=== PATIENT | female | born 1925 | race Caucasian/White ===

== ENCOUNTER 2016-11-24 08:04 | Observation (INO) | payer MEDICARE, MEDICAID ==
[~2016-11-24] VITALS: Ht 180.3 cm; Wt 60.0 kg
[2016-11-24] VITALS (12 sets, daily range): BP systolic 121–198; BP diastolic 62–107; PULSE 76–110; RESP 16–22; O2SAT 92–96
[~2016-11-24 08:04] MED LIST: ASPI-973 PO; LISI-571 PO; METO25TA6 PO; OMEP20CA11 PO
--- NOTE | 2016-11-24 08:11 | ED.REPORT ---
HPI-General Illness Date of Service Nov 24, 2016 ED Provider: Dr. Bliss The pt is an 89 y/o female with a hx of HTN, scoliosis, and osteoporosis who presents to the ED via EMS complaining of generalized weakness, onset this morning. The pt could not get up from the toilet today. She also reports chronic back pain which has not worsened, and left thigh pain. The pt had a ground level fall a couple of days ago. She had experienced lower extremity weakness and slid to the floor. She did not hit her head or injure her left knee at that time. Unlike today, she was able to walk with the help of the paramedics at that time. She denies fever, chills, coughing, sputum, chest pain , nausea, vomiting, diarrhea,and change in appetite and fluid intake. She had dysuria, which she states has improved since beginning an antibiotic for UTI a few days ago. The pt was recently diagnosed with UTI and per pharmacy records macrobid was prescribed. She reports improvement in her UTI sx. The pt has not been taking her Aspirin and HTN medications, because they have not been recently filled. Nursing Notes Stated Complaint: POST GROUND LEVEL FALL/LEFT HIP PAIN Chief Complaint: General Complaint Nursing Notes Reviewed: Yes Allergies: Coded Allergies: Penicillins (Verified Allergy, Severe, 05/16/15) fluocinonide (Verified Allergy, Severe, Rash, 05/16/15) amlodipine (Verified Allergy, Mild, 10/14/15) lactose (Verified Allergy, Mild, Headache, 05/16/15) Sulfa (Sulfonamide Antibiotics) (Verified Allergy, Unknown, 05/16/15) ciprofloxacin (Verified Allergy, Unknown, 05/16/15) Tendonitis per pt and family ciprofloxacin HCl (Verified Allergy, Unknown, 05/16/15) Tendonitis per pt and family cortisone (Verified Allergy, Unknown, 05/16/15) influenza virus vaccine, specific (Verified Allergy, Unknown, RASH, ITCHING, 05/16/15) pneumococcal vaccine (Verified Allergy, Unknown, SWELLING, RASH, 05/16/15) Scheduled Aspirin (Aspirin) 81 Mg Tablet 81 MG PO DAILY Lisinopril (Lisinopril) 5 Mg Tablet 5 MG PO DAILY Metoprolol Tartrate (Metoprolol Tartrate) 25 Mg Tablet 25 MG PO BID Omeprazole (Omeprazole) 20 Mg Capsule.dr 20 MG PO DAILY General Time Seen by MD: 08:09 Chief Complaint Weakness Hx Obtained From: Patient Arrived By: Ambulance Sudden in Onset?: No Onset Occurred: 1 - 4 hours ago Symptom Duration: Since onset Location: : Leg left Quality: Painful Radiation: : Does not radiate Severity: Current: Moderate Severity: Maximum: Moderate Recent Healthcare: No recent doctor visit Past Medical History Past Medical History sciatica scoliosis osteoporosis Unspecified irregular heart rhythm Reports: GERD, Hypertension Past Surgical History None reported Smoking History Former Smoker Social History Other Social History: Good social support Ambulatory Status Walker Review of Systems Reports: sore abdomen Denies: change in appetite and fluid intake Full Review of Systems Constitutional: Reports: Weakness - generalized, Denies: Chills, Fever Respiratory: Denies: Non-productive cough, Prod cough, clear GI: Denies: Diarrhea, Nausea, Vomiting Female: Denies: Dysuria Musculoskeletal: Reports: Back pain (aspirin), Joint pain (left knee) Complete sys rev & neg: except as marked. Physical Exam Vital Signs Vital Signs Date Time Temp Pulse Resp B/P Pulse Ox O2 Delivery O2 Flow Rate FiO2 11/24/16 09:34 100 21 174/107 95 Room Air 11/24/16 09:15 82 21 163/62 95 Room Air 11/24/16 08:45 92 22 180/78 93 Room Air 11/24/16 08:30 90 21 198/74 95 Room Air 11/24/16 08:15 91 21 182/99 95 Room Air 11/24/16 08:07 36.5 107 21 179/89 93 Room Air Initial VS: Reviewed Head / Eyes: Atraumatic, Normocephalic Neck: Supple, Non-tender, Full range of motion Respiratory: Breath sounds normal, Clear to auscultation, No respiratory distress Cardiovascular: Regular rate & rhythm, Heart sounds normal, Intact distal pulses Extremities: Vascular intact, Neuro intact, No swelling, No tenderness Skin: Warm, Dry, No cyanosis Neurologic: Alert, Oriented, Nonfocal General/Constitutional: Awake, Alert, Cooperative Cardiovascular: Regular rhythm, Heart sounds NL, No gallop, No murmurs, No rubs Heart Rate / Rhythm: Positive: Tachycardia Lower Ext Edema: Negative: Pitting Abdomen: Atraumatic, Soft, No guarding, No rebound mild suprapubic tenderness Back: Atraumatic, Full range of motion Lower Extremity / Pelvis / MS: Atraumatic, Full range of motion, No swelling, Neurologic intact, Vascular intact Tenderness to dstal thigh without bony crepitus. Interpretation & Diagnostics Lab Results Interpretation Result Diagram: 11/24/16 0832 11/24/16 0832 Test 11/24/16 08:32 11/24/16 09:09 11/24/16 09:25 White Blood Count 8.9th/mm3 (3.8-10.1) Red Blood Count 5.21mil/mm3 (3.90-5.20) Hemoglobin 15.7g/dL (12.0-15.6) Hematocrit 44.9% (35.0-46.0) Mean Corpuscular Volume 86.2fL (81-100) Mean Corpuscular Hemoglobin 30.1pg (27.0-35.0) Mean Corpuscular Hemoglobin Concent 35.0% (32.0-37.0) Red Cell Distribution Width 12.6% (12.3-15.4) Platelet Count 175bil/L (150-400) Neutrophils (%) (Auto) 82.5% (40-74) Lymphocytes (%) (Auto) 9.1% (14-46) Monocytes (%) (Auto) 7.7% (4-12) Eosinophils (%) (Auto) 0.4% (0-5) Basophils (%) (Auto) 0.2% (0-3) Sodium Level 127mEq/L (134-144) Potassium Level 4.1mEq/L (3.5-5.2) Chloride Level 88mEq/L (97-108) Carbon Dioxide Level 19mmol/L (18-29) Blood Urea Nitrogen 9mg/dL (8-27) Creatinine 0.53mg/dL (0.57-1.00) Estimat Glomerular Filtration Rate 156mL/min (>59) Glucose Level 136mg/dL (60-99) Osmolality 267 (275-300) Calcium Level 9.5mg/dL (8.5-10.1) Magnesium Level 1.9mg/dL (1.6-2.6) Total Bilirubin 1.1mg/dL (0.0-1.2) Aspartate Amino Transf (AST/SGOT) 20U/L (0-50) Alanine Aminotransferase (ALT/SGPT) 10U/L (0-32) Alkaline Phosphatase 77U/L (25-165) Troponin T 0.010ug/L (0.0-0.011) Total Protein 7.6g/dL (6.4-8.4) Albumin 4.4g/dL (3.4-5.0) Lactic Acid Level 1.7mmol/L (0.4-2.0) Urine Color Yellow (YELLOW) Urine Appearance Clear (CLEAR,HAZY) Urine pH 7.0 (5.0-8.0) Urine Specific Pingree 1.005 (1.003-1.035) Urine Protein Negativemg/dL (NEG,TRACE) Urine Glucose (UA) Negativemg/dL (NEGATIVE) Urine Ketones 40mg/dL (NEGATIVE) Urine Occult Blood Trace (NEGATIVE) Urine Nitrite Negative (NEGATIVE) Urine Bilirubin Negative (NEGATIVE) Urine Urobilinogen Normalmg/dL (NORMAL) Urine Leukocyte Esterase Negative (NEGATIVE) Urine RBC 0-2/hpf (0-2) Urine WBC 0-5/hpf (0-5) Urine Epithelial Cells Few/hpf (NONE-MOD) Urine Crystals Oxalic acid crystals (NONE Urine Bacteria Few/hpf (NONE-FEW) Urine Hyaline Casts None/lpf (NONE) Urine Granular Casts None seen (NONE SEEN) Urine Waxy Casts None seen (NONE SEEN) Urine Red Blood Cell Casts None seen (NONE SEEN) Urine White Blood Cell Casts None seen (NONE SEEN) Urine Mucus None seen (None Seen) Urine Trichomonas None seen (NONE SEEN) Urine Yeast None (NONE SEEN) Urinalysis Comment None Urine Culture Reflexed Not indicated Urine Osmolality 171mOs/kH2O (250-1200) Urine Random Sodium 30mEq/L ECG Interpretation ECG Interpretation: Normal sinus rhythm. Rate 87. No acute ST changes Time: 09:36 Interpreted by: ED physician X-Ray Chest Interpretation Chest Xray Interpretation: IMPRESSION: No radiographic evidence of acute cardiopulmonary pathology. Dictated by: Og See M.D. on 11/24/2016 at 9:10 Approved by: Og See M.D. on 11/24/2016 at 9:11 View: Portable, 1 view Interpretation / Wet Read by: Interpret - Radiologist X-Ray Interpretation Xray Interpretation: IMPRESSION: No acute fractures or dislocations. Dictated by: Og See M.D. on 11/24/2016 at 9:11 Approved by: Og See M.D. on 11/24/2016 at 9:12 X-Ray Ordered: Femur left Interpretation / Wet Read by: Interpret - Radiologist Re-Eval/Medical Decision Med Decision/Clinical Course Patient presents with weakness and recent diagnosis of UTI, she is initially tachycardic. There are some initial concerns for early sepsis given the tachycardia, systemic symptoms of weakness, and recent diagnosis of urinary tract infection. For this reason, a small bolus of normal saline, 500 mL's, was given, however after reviewing labs showing hyponatremia and no signs of UTI, no further IV fluids are given and nephrology is consulted. Nephrology recommends holding IV fluid and ordering serum osmolality, urine osmolality, and urine sodium. Will plan to admit. Time of Eval: 09:12 Re-Evaluation/Progress Note: Rechecked pt. Discussed lab results, imaging results,diagnosis and plan to admit. Pt understands and agrees with the plan for admission. All questions addressed. Consultation #1: Referral / Consult Name: Jose Curiel DO Consulted With: Nephrology Call Returned at: 09:17 Apartment Coordinator: Will see patient, Agrees with eval, Agrees with plan Note: Does not recommend IV fluids. Recommends ordering serum osmolality, urine osmolality and sodium. Consultation #2: Referral / Consult Name: Tory Ward DO Call Returned at: 11:17 Apartment Coordinator: Accepts admit Counseled Regarding: Diagnosis, Lab results, Need for admission Discharge & Departure Primary Impression: Hyponatremia Disposition: ADMITTED TO HOSPITAL Referrals: Divina Lindsey MD (PCP) Scribe Attestation Portions of this note were transcribed by Michele Eisenberg. I,, personally performed the history,physical exam and medical decision-making;I reviewed and confirmed the accuracy of the information in the transcribed note. Signed by Lynn Nichols. 11/24/16 copies to: Divina Lindsey MD, Timothy S DO Nov 24, 2016 08:11 Michele Eisenberg Nov 24, 2016 08:24
[2016-11-24] MEDS ORDERED: 0.9% Sodium Chloride 500 ML IV ONE (08:30)
[2016-11-24 08:46] LABS: TROPONIN T 0.01 ug/L (0.0-0.011)
[2016-11-24 08:55] LABS: Mean Corpuscular Hemoglobin 30.1 pg (27.0-35.0); Mean Corpuscular Volume 86.2 fL (81-100); NEUTROPHILS % (AUTO) 82.5 % (40-74); Platelet Count 175 bil/L (150-400)
[2016-11-24 08:56] LABS: BASOPHILS % (AUTO) 0.2 % (0-3); EOSINOPHILS % (AUTO) 0.4 % (0-5); MONOCYTES % (AUTO) 7.7 % (4-12)
[2016-11-24 08:57] LABS: Magnesium 1.9 mg/dL (1.6-2.6)
--- NOTE | 2016-11-24 09:12 | DRSVH ---
PROCEDURE: X-RAY CHEST ONE VIEW, PORTABLE ([id number]) INDICATIONS: generalized weakness TECHNIQUE: One view of the chest was acquired. COMPARISON: [facility], CR, CHEST 1VW (PORTABLE), 09/23/2012, 5:02. [facility], CR, CHEST 1VW (PORTABLE), 04/28/2012, 11:23. FINDINGS: Surgical changes and devices: None. Lungs and pleura: No pleural effusions or pneumothorax. Lungs are clear. Mediastinum: Mediastinal contours appear normal. Heart size is normal. Bones and chest wall: No suspicious bony lesions. Overlying soft tissues appear unremarkable. IMPRESSION: No radiographic evidence of acute cardiopulmonary pathology. Dictated by: Og See M.D. on 11/24/2016 at 9:10 Approved by: Og See M.D. on 11/24/2016 at 9:11
--- NOTE | 2016-11-24 09:13 | DRSVH ---
PROCEDURE: X-RAY LEFT FEMUR, TWO VIEWS ([id number]) INDICATIONS: pain, post fall TECHNIQUE: 4 views of the femur were acquired. COMPARISON: None. FINDINGS: Bones: No fractures or dislocations. No suspicious bony lesions. Osteopenia. Left hip degenerative change. Soft tissues: No suspicious soft tissue calcifications or masses. IMPRESSION: No acute fractures or dislocations. Dictated by: Og See M.D. on 11/24/2016 at 9:11 Approved by: Og See M.D. on 11/24/2016 at 9:12
[2016-11-24 09:58] LABS: OSMOLALITY, URINE 171 mOs/kH2O (250-1200)
[2016-11-24 10:02] LABS: APPEARANCE,URINE CLEAR (CLEAR,HAZY); COLOR,URINE YELLOW (YELLOW); OCCULT BLOOD,URINE TRACE (NEGATIVE); UROBILINOGEN,URINE NORMAL (NORMAL)
[2016-11-24] MEDS ORDERED: Heparin 5,000 Unit/mL Inj SUBQ SCH (11:15)
[2016-11-24] MEDS ORDERED: Ondansetron 2 mg/mL 2 mL Inj IVPUSH PRN (11:15)
[2016-11-24] MEDS ORDERED: Alum-Mag Hydrox-Simeth 30 mL Suspension PO PRN (11:15)
[2016-11-24] MEDS ORDERED: Polyethylene Glycol (PEG) 17 Gm Powder PO PRN (11:15)
[2016-11-24] MEDS: Sodium Chloride LOK Flush 10 mL Syringe IVFLUSH SCH ×2 (13:02→14:41)
[2016-11-24] MEDS: 0.9% Sodium Chloride 1,000 ML IV SCH (14:41)
--- NOTE | 2016-11-24 14:48 | NUR ---
ADMIT Patient received from the ED via a gurney. Transferred to the bed via a sliding board. Patient is alert and oriented X 4. Answering questions appropriately. Patient stated that she feels sore but she is not in pain. Tolerating liquids PO and her diet well. Denies nausea. No emesis noted. Denies SOB. Mepilex foam placed over her sacral area for protection. Lagrange alarm in place for safety (HX: Falls). Oriented to room and call light. (Pls. refer to admit grid for assessments)
--- NOTE | 2016-11-24 15:07 | PCM.HPMED ---
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 Patient states that she has an issue with not being able to get up from her toilet this morning. She states that normally she walks with the help of her walker. She has suffered a ground- level fall 2 days ago and called the EMT. Came and evaluated her and put her back to bed, she said she was also seen at the walk-in clinic on Friday, was diagnosed with a UTI past taken the medications yesterday a.m. and last night a total of 2 doses so far . She is endorsing some lower abdominal pain. She does get frequent UTIs. She has no problems with appetite, she is trying to eat well and stay hydrated. She lives on her own and a small studio apartment. Her adopted daughter and granddaughter are present in the room and are able to give history. The patient is endorsing no unilateral weakness, no dizziness , no visual symptoms (she has received an injection in one of her eye for hemorrhage and she is going to get another one soon). She has no diarrhea or constipation. She says she does not understand why she is feeling so weak. Patient is on metoprolol, aspirin and omeprazole at home. She was unable to get her prescriptions refilled for the last 1 week and has not taken her medications. In the ER chest x-ray was nonacute, EKG was normal sinus heart rate appears to be a maximum 100(granddaughter states that sometimes her heart rate on the monitor went up to 120s). Urine analysis was negative for infection. Nephrology was consulted due to concern for hyponatremia at 127, who initially recommended fluid restriction but later upon reviewing her platelet records that he revised his recommendation and requested fluid hydration as he thought patient may have been dehydrated. A left femur x-ray done in the ER is negative for fractures. Currently patient states that other than her weakness she has no other symptoms with the exception of some lower abdominal pain and left leg pain. Review of records shows that patient was hospitalized in September of last year for atrial fibrillation and at that point metoprolol was initiated. Atrial fibrillation resolved on its own, it was deemed unnecessary for her to be on anticoagulation and that decision is deferred to the client architect at that time. Patient has had an echocardiogram on 11/14/15 that showed ejection fraction of 60-65% right ventricular pressures of 44 mmhg and no significant valvular disease. Review of Systems: Complete review of systems performed, pertinent positives and negatives per history of present illness, all other systems reviewed and are negative. Allergies Coded Allergies: Penicillins (Verified Allergy, Severe, 05/16/15) fluocinonide (Verified Allergy, Severe, Rash, 05/16/15) amlodipine (Verified Allergy, Mild, 10/14/15) lactose (Verified Allergy, Mild, Headache, 05/16/15) Sulfa (Sulfonamide Antibiotics) (Verified Allergy, Unknown, 05/16/15) ciprofloxacin (Verified Allergy, Unknown, 05/16/15) Tendonitis per pt and family ciprofloxacin HCl (Verified Allergy, Unknown, 05/16/15) Tendonitis per pt and family cortisone (Verified Allergy, Unknown, 05/16/15) influenza virus vaccine, specific (Verified Allergy, Unknown, RASH, ITCHING, 05/16/15) pneumococcal vaccine (Verified Allergy, Unknown, SWELLING, RASH, 05/16/15) Home Medications Aspirin, metoprolol, omeprazole PMH Hypertension, scoliosis, osteoporosis, sciatica, atrial fibrillation, GERD Surgical History Tonsillectomy, appendectomy Family History Mother was very healthy, of old age Dad [facility] Social History Occupation: used to work at the [employer] Hx Alcohol Use: Yes Hx Substance Use: No Hx Tobacco Use: No Smoking Status: Former Smoker Living Arrangement: Alone Exam Vital Signs Vital Sign - Last Date Time Temp Pulse Resp B/P Pulse Ox O2 Delivery O2 Flow Rate FiO2 11/24/16 09:34 100 21 174/107 95 Room Air 11/24/16 08:07 36.5 Exam Gen.: No acute distress appears tired elderly woman interacting appropriately heart regular rate and rhythm no S3-S4 murmurs Lungs: Clear to auscultation no crackles or wheezes Musculoskeletal: Scoliotic, kyphosis, symmetric strength in upper and lower extremities, reduced at 4/5, tenderness to palpation of pelvis and left hip and right pubic ramus Neurological: No focal deficit and grossly normal extraocular movements are intact, [id number] is unremarkable, equal and symmetric reflexes Heart: Regular rate and rhythm no S3-S4 sounds Psychiatric: No anxiety or agitation HEENT: Normocephalic, atraumatic. External ears without defect. Pupils equal, round, and reactive to light and accommodation. Anicteric sclerae, moist conjunctivae, and no lid lag. Oropharynx free of erythema and cobble stoning with moist mucosa. Neck: Supple with full range of motion. No jugular venous distension. No bruits. No lymphadenopathy or thyromegaly. Abdomen: Bowel tones present. Soft, mildly tender diffusely, nondistended. No hepatosplenomegaly or masses appreciated. Extremities: No clubbing, cyanosis, edema, or lymphadenopathy appreciated. Skin: Normal temperature, turgor, and texture; no rash, ulcers, or subcutaneous nodules appreciated. Psychiatric: Normal mood and affect. Alert and oriented to person, place, and time. Lab and Diagnostics Result Diagram: 11/24/1683111/24/16831 Assessment & Plan This is a pleasant 89-year-old white female with past medical history of hypertension, atrial fibrillation that has resolved presenting today due to general weakness, functional debility. Assessment #1 general weakness, functional debility present on admission acute -- Physical therapy -- Telemonitoring to see if she is having paroxysmal A. fib -- Restart cardiac medications -- Follow blood cultures Assessment #2 hyponatremia chronic stable -- Patient appears to be close to her baseline -- IV fluid hydration at 70 mL per hour -- Recheck labs in the a.m. Assessment #3 hypertension chronic presumed stable recently worsened -- Continue home medication Assessment #4 pelvic tenderness, present on admission acute -- X-rays were ordered -- X-rays of the left femur were reviewed, negative for fracture Assessment #4 atrial fibrillation, presumed resolved -- Continue her medication Assessment #5 urinary tract infection presumably acute -- Yesterday's UA medical necessity requested from the lab -- Apparently she was given Macrobid for treatment -- UA From the ER is clean - I have tried to obtain records from walk-in clinic at [facility], they were closed for the day. [facility] says they Do not have the result in spite of initially telling me that they did have the result -- I will start her on ceftriaxone, until those results become available Assessment #6 GERD chronic stable -- Continue home medication CODE STATUS: DNR/DNI, alternate decision maker Emilia [phone] Patient is admitted under Inpatient status with expected length of stay greater than 2 midnights due to severity of presenting symptoms, risk of adverse event, and complexity of treatment plan. Pain Evaluation: Adequate Pain Control Resuscitation Status: DNR/DNI:Do Not Resuscitate/Intubate (.Campbell Nieto [phone] ) Time spent 45 Minute Attending Statement 45 minutes Tory Ward DO Nov 24, 2016 11:04
--- NOTE | 2016-11-24 15:50 | DRSVH ---
PROCEDURE: X-RAY PELVIS WITH BILATERAL HIPS, 3 VIEWS INDICATIONS: recent fall, pain TECHNIQUE: AP pelvis with lateral view(s) of the bilateral hip(s). COMPARISON: None. FINDINGS: Bones: No fractures or dislocations. Pelvic ring appears intact. No suspicious bony lesions. Osteo penia. Degenerative changes in both hips and the lower lumbar spine. Soft tissues: The visualized bowel gas pattern is normal. A 1.4 cm calcification projects over the r ight lower quadrant likely within the cecum. IMPRESSION: No acute fractures or dislocations. If there is clinical concern for a radiographically o ccult right hip fracture then a noncontrast CT or MRI would be recommended for further evaluation. Dictated by: Og See M.D. on 11/24/2016 at 15:46 Approved by: Og See M.D. on 11/24/2016 at 15:49
[2016-11-24] MEDS ORDERED: cefTRIAXone Inj 1,000 MG in Dextrose 5% Minibag Plus 50 ML IV SCH (19:50)
[2016-11-24] MEDS: Heparin 5,000 Unit/mL Inj SUBQ SCH (22:15)
[2016-11-25] VITALS (8 sets, daily range): BP systolic 128–150; BP diastolic 66–83; PULSE 73–89; RESP 16–22; O2SAT 93–98
[2016-11-25] MEDS: Sodium Chloride LOK Flush 10 mL Syringe IVFLUSH SCH ×4 (00:30→22:54)
--- NOTE | 2016-11-25 04:31 | NUR ---
Pain Patient A&OX3. Patient states that she doesn't have any pain. Tele sinus 83. Thelma alarm. Patient bed rest, using bed pain to void. Patient denies nausea and vomiting. Sleeping quietly in room.
[2016-11-25] MEDS: Heparin 5,000 Unit/mL Inj SUBQ SCH ×3 (05:03→21:11)
[2016-11-25] MEDS: 0.9% Sodium Chloride 1,000 ML IV SCH ×2 (05:14→21:02)
[2016-11-25 05:35] LABS: BASOPHILS % (AUTO) 0.5 % (0-3); EOSINOPHILS % (AUTO) 3.5 % (0-5); MONOCYTES % (AUTO) 12.9 % (4-12); Mean Corpuscular Hemoglobin 30.1 pg (27.0-35.0); Mean Corpuscular Volume 88.3 fL (81-100); NEUTROPHILS % (AUTO) 61.4 % (40-74); Platelet Count 139 bil/L (150-400)
--- NOTE | 2016-11-25 11:47 | NUR ---
Case Management: NAEEM given and explained to pt. Stephanie WHITEHEADRN
--- NOTE | 2016-11-25 13:54 | NUR ---
Social Work: Initial Assessment/Readiness for Discharge/Multi-Disciplinary Rounds D: EMR reviewed. Please see Initial Assessment linked to this note for more information. Pt is an 89 y/o female admitted [facility] - with a readmit risk score of 0 - for hyponatremia per H&P. Pt's insurance is Medicare and [facility]. PCP is Divina Lindsey MD. SW met with pt and ELIZABETH Nieto at bedside to conduct initial assessment. Pt was alert and oriented x3. SW explained role and wrote phone number on white board. SW provided [facility] Discharge Planning Checklist and encouraged pt to contact SW for any discharge planning questions. Pt discussed in multidisciplinary rounds and is not medically stable for discharge home today. Anticipate 1-2 more days. ordered SNF placement - pt is [facility] and will not qualify for SNF placement covered by [facility]. Pt can't afford private pay. placed order for HH RN PT. SW met with pt and provided choice list. Pt did not have a choice. SW made referral to [facility] per rotating Vendor Calendar. Access provided. No other SW needs identified, no other MD orders received. Pt lives at home alone in [place]. Pt uses a walker and wheelchair at baseline. Pt has hx at [facility]. Pt does not have hx of HH. Pt has [facility] caregiver 110 hrs/month. CM is Koki Rodriguez. SW faxed clinicals to . Caregiver comes M/W/F/SA. Pt and DPOA stated they provided DPOA/advanced directive ppw and a copy is in pt's hard chart. A: Pt who has 110 hrs/month of [facility] at baseline. Pt for whom HH RN PT is medically necessary. P: Pt anticipated to return home with family to transport via POV. Pt to return home with [facility] caregiver and [facility]. SW will continue to follow. ERENDIRA Doherty Addendum: 11/25/16 at 1406 by MARCELL RASCON Amended: Links added. Addendum: 11/25/16 at 1459 by MARCELL VALERA SUNSHINE richmond completed F2F to [facility] confirmed receipt of F2F. F2F in folder. ERENDIRA Doherty
--- NOTE | 2016-11-25 15:11 | NUR ---
Evaluation completed. Please go to "Notes" then click on "Assessments and Notes" (bottom left corner of screen). Then select appropriate discipline tab on top of screen.
--- NOTE | 2016-11-25 20:50 | PCM.PNMED ---
Subjective Date of Service Nov 25, 2016 Subjective Patient is seen and examined. She is feeling slightly better, she is very receptive to the idea of home care help. Patient was noted to have some paroxysmal tachycardia on telemonitoring Exam Vital Signs Vital Sign - Last Date Time Temp Pulse Resp B/P Pulse Ox O2 Delivery O2 Flow Rate FiO2 11/25/16 10:25 80 11/25/16 08:31 36.4 18 141/81 93 Room Air Intake and Output 11/24/16 11/24/16 11/25/16 Cumulative From/Thru 15:00 23:00 07:00 11/24/16 08:07 - 11/25/16 06:37 Intake Total 500 ml 1240 ml 1600 ml 3340 ml Output Total 180 ml 350 ml 530 ml Balance 500 ml 1060 ml 1250 ml 2810 ml Intake Oral 1240 ml 520 ml 1760 ml IV Total 500 ml 1080 ml 1580 ml Output Urine Total 180 ml 350 ml 530 ml # Voids 2 2 4 # Bowel Movements 0 0 0 Exam Gen.: No acute distress appears tired elderly woman interacting appropriately heart regular rate and rhythm no S3-S4 murmurs Lungs: Clear to auscultation no crackles or wheezes Musculoskeletal: Scoliotic, kyphosis, neg leg flexion and hip rotation on left side Neurological: No focal deficit and grossly normal extraocular movements are intact, [id number] is unremarkable, equal and symmetric reflexes Heart: Regular rate and rhythm no S3-S4 sounds Psychiatric: No anxiety or agitation Neck: Supple with full range of motion. No jugular venous distension. No bruits. No lymphadenopathy or thyromegaly. Abdomen: Bowel tones present. Soft, mildly tender diffusely, nondistended. No hepatosplenomegaly or masses appreciated. Extremities: No clubbing, cyanosis, edema, or lymphadenopathy appreciated. Skin: Patient does have a stage I to stage II ulcer in the mid thoracolumbar spine Psychiatric: Normal mood and affect. Alert and oriented to person, place, and time. IVs and Medications IV Fluids Reduced fluids to 40 mL/h Medications Reviewed: Medications were reviewed in detail Lab and Diagnostics Result Diagram: 11/25/16 0502 11/25/16 0502 Assessment & Plan This is a pleasant 89-year-old white female with past medical history of hypertension, atrial fibrillation that has resolved presenting today due to general weakness, functional debility. Assessment #1 general weakness, functional debility present on admission acute -- Physical therapy -- Telemonitoring to see if she is having paroxysmal A. fib -- Restart cardiac medications -- Follow blood cultures: Negative to date Assessment #2 hyponatremia chronic improving -- Patient appears to be close to her baseline at admission -- IV fluid hydration at 70 mL per hour -- Recheck labs in the a.m. #3 Sinus tachycardia acute -- Increased her metoprolol dose to 50 mg twice a day Assessment #4 hypertension chronic presumed stable recently worsened -- Continue home medication Assessment # 5 pelvic tenderness, present on admission acute -- X-rays were ordered negative -- X-rays of the left femur were reviewed, negative for fracture Assessment # 6 atrial fibrillation, presumed resolved -- Continue her medication metoprolol, dose is increased secondary to sinus tachycardia Assessment # 7 urinary tract infection presumably acute -- Apparently she was given Macrobid for treatment -- UA From the ER is clean -[facility] did not run a UA, reviewed the records. They have ordered a straight culture that showed less than 100,000 colonies of Escherichia coli. I have discussed this with patient and her POA, who say that in spite of her not having any symptoms today, she did have symptoms prior to going to [facility]. Discontinue ceftriaxone, complete 3 more days of Macrobid as planned earlier Assessment #8 stage I stage II ulcers present on admission -- Wound care is consulted Assessment # 9 GERD chronic stable -- Continue home medication CODE STATUS: DNR/DNI, alternate decision maker Emilia [phone] Patient did not qualify for an inpatient admission upon review, she is still in observation admission. Patient is agreeable to home care help, power of trial attorney T barby wants to know if patient can resume more [employer] hours VTE Mechanical Devices: Intermittant Pneumatic CD Resuscitation Status: DNR/DNI:Do Not Resuscitate/Intubate (.Campbell Nieto [phone] ) Time spent 30 min Tory Ward DO Nov 25, 2016 12:51
[2016-11-25] MEDS: Nitrofurantoin Monohyd-Macrocryst 100 mg Capsule PO SCH (21:12)
[2016-11-26 01:32] VITALS: BP 131/71; PULSE 84; RESP 18; O2SAT 95
[2016-11-26] MEDS: Heparin 5,000 Unit/mL Inj SUBQ SCH (05:27)
--- NOTE | 2016-11-26 05:44 | NUR ---
Activity Pt has been OOB frequently this shift to BR. NS @ 40. Ambulates with 1PA using FWW and is steady on feet. Takes a little help to get up on her feet, OOB and off toilet, pt uses call light appropriately. Incontinent of urine, wears a pullup. She has had no c/o pain/N/V, CP, SOB this shift and anticipates being able to discharge to adult living some time today.
[2016-11-26 06:50] VITALS: BP 108/68; PULSE 81; RESP 16; O2SAT 96
[2016-11-26] MEDS: Sodium Chloride LOK Flush 10 mL Syringe IVFLUSH SCH ×2 (08:30→11:16)
[2016-11-26 09:07] VITALS: BP 153/82; PULSE 85; RESP 18; O2SAT 95
[2016-11-26] MEDS ORDERED: NITR100 PO (09:38)
[2016-11-26] MEDS ORDERED: METO25TA6 PO (09:38)
[2016-11-26] MEDS ORDERED: ASPI-973 PO (09:40)
[2016-11-26] MEDS ORDERED: LISI-571 PO (09:40)
[2016-11-26] MEDS ORDERED: OMEP20CA11 PO (09:43)
--- NOTE | 2016-11-26 11:07 | NUR ---
Social Work- Discharge/ Multidisciplinary Data: EMR reviewed. Pt is on day 2 of hospitalization for hyponatremia per H&P. Pt discussed in multidisciplinary rounds, pt to discharge today. Discharge orders are active. SW met with pt at bedside regarding d/c plan, reviewed plan of home with services and resumption of [facility]. Pt is agreeable to this plan. Pt confirmed that her granddaughter Emilia will transport home at d/c. T/C to Rohith at [facility] regarding discharge. Rohith is agreeable to d/c, going to stop by to meet pt in room prior to discharge. [facility] has F2F. No additional d/c planning needs identified. Assessment: Pt for whom HH is medically necessary at discharge Plan: Pt to discharge home with [facility] services and resumption of [facility] caregiver, granddaughter to transport via POV. [facility] has F2F. No additional d/c planning needs identified. Carine Mims MSW
[2016-11-26] MEDS: Nitrofurantoin Monohyd-Macrocryst 100 mg Capsule PO SCH (11:14)
--- NOTE | 2016-11-26 11:53 | NUR ---
Inpatient Wound Nurse Patient seen for Stage 1 pressure injury to distal sacrum. A persistent, non-blanchable, erythemic area in horseshoe shape, measuring 2 cm L x 2 cm W is visualized just proximal of anus, no open area found, no drainage. Wound was cleansed and blotted dry, then covered wtih 4 x 4 bordered Mepilex placed on the diagonal. Patient instructed to keep HOB no greater than 30 degrees, or, when sitting upright, be out of bed and bolt upright, sitting squarely on ischial tuberosities and not sacrum. Patient was instructed that dressing can be changed every 3 to 5 days unless soiled, rolled, balled, or peeling. Patient may use Mepilex or hydrocolloid (Duoderm). Wound should resolve on its own. If it opens or becomes hot and painful, she should see PCP.
--- NOTE | 2016-11-26 15:07 | PCM.DC.MED ---
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 Patient states that she has an issue with not being able to get up from her toilet this morning. She states that normally she walks with the help of her walker. She has suffered a ground- level fall 2 days ago and called the EMT. Came and evaluated her and put her back to bed, she said she was also seen at the walk-in clinic on Friday, was diagnosed with a UTI past taken the medications yesterday a.m. and last night a total of 2 doses so far . She is endorsing some lower abdominal pain. She does get frequent UTIs. She has no problems with appetite, she is trying to eat well and stay hydrated. She lives on her own and a small studio apartment. Her adopted daughter and granddaughter are present in the room and are able to give history. The patient is endorsing no unilateral weakness, no dizziness , no visual symptoms (she has received an injection in one of her eye for hemorrhage and she is going to get another one soon). She has no diarrhea or constipation. She says she does not understand why she is feeling so weak. Patient is on metoprolol, aspirin and omeprazole at home. She was unable to get her prescriptions refilled for the last 1 week and has not taken her medications. In the ER chest x-ray was nonacute, EKG was normal sinus heart rate appears to be a maximum 100(granddaughter states that sometimes her heart rate on the monitor went up to 120s). Urine analysis was negative for infection. Nephrology was consulted due to concern for hyponatremia at 127, who initially recommended fluid restriction but later upon reviewing her platelet records that he revised his recommendation and requested fluid hydration as he thought patient may have been dehydrated. A left femur x-ray done in the ER is negative for fractures. Currently patient states that other than her weakness she has no other symptoms with the exception of some lower abdominal pain and left leg pain. Review of records shows that patient was hospitalized in September of last year for atrial fibrillation and at that point metoprolol was initiated. Atrial fibrillation resolved on its own, it was deemed unnecessary for her to be on anticoagulation and that decision is deferred to the engine lathe operator at that time. Patient has had an echocardiogram on 11/14/15 that showed ejection fraction of 60-65% right ventricular pressures of 44 mmhg and no significant valvular disease. Hospital Course This is a pleasant 89-year-old white female with past medical history of hypertension, atrial fibrillation that has resolved presenting today due to general weakness, functional debility. Assessment #1 general weakness, functional debility present on admission acute -- Physical therapy -- Restarted cardiac medications, metoprolol increased to 50 mg twice a day as she is seen to be tachycardic -- Blood cultures are Negative to date Assessment #2 hyponatremia chronic improving -- Patient appears to be close to her baseline at admission -- IV fluid hydration is provided #3 Sinus tachycardia resolved -- Increased her metoprolol dose to 50 mg twice a day Assessment #4 hypertension chronic presumed stable recently worsened -- Continued home medication Assessment # 5 pelvic tenderness, present on admission acute -- X-rays were ordered of the pelvis and L hip negative -- X-rays of the left femur were reviewed, negative for fracture Assessment # 6 atrial fibrillation, presumed resolved -- Continued her medication metoprolol, dose is increased secondary to sinus tachycardia as above Assessment # 7 urinary tract infection presumably acute -- Apparently she was given Macrobid for treatment -- UA From the ER is clean -[place] walk-in clinic did not run a UA, reviewed the records. They have ordered a straight culture that showed less than 100,000 colonies of Escherichia coli. I have discussed this with patient and her POA, who say that in spite of her not having any symptoms today, she did have symptoms prior to going to [place]. Discontinue ceftriaxoned, she was given 2 doses of macrobid. Complete 2 more days of Macrobid as planned earlier for discharge Assessment #8 stage I stage II ulcers present on admission -- Wound care is consulted, recommendations are provided Assessment # 9 GERD chronic stable -- Continued home medication CODE STATUS: DNR/DNI, alternate decision maker Emilia [phone] Patient did not qualify for an inpatient admission upon review, she is still in observation admission. Patient is agreeable to home care help Exam Vital Signs (Last) Date Time Temp Pulse Resp B/P Pulse Ox O2 Delivery O2 Flow Rate FiO2 11/26/16 09:07 36.8 85 18 153/82 95 Room Air Exam Gen.: No acute distress appears tired elderly woman interacting appropriately heart regular rate and rhythm no S3-S4 murmurs Lungs: Clear to auscultation no crackles or wheezes Musculoskeletal: Scoliotic, kyphosis, neg leg flexion and hip rotation on left side Neurological: No focal deficit and grossly normal extraocular movements are intact, [id number] is unremarkable, equal and symmetric reflexes Heart: Regular rate and rhythm no S3-S4 sounds Psychiatric: No anxiety or agitation Neck: Supple with full range of motion. No jugular venous distension. No bruits. No lymphadenopathy or thyromegaly. Abdomen: Bowel tones present. Soft, mildly tender diffusely, nondistended. No hepatosplenomegaly or masses appreciated. Extremities: No clubbing, cyanosis, edema, or lymphadenopathy appreciated. Skin: Patient does have a stage I to stage II ulcer in the mid thoracolumbar spine Psychiatric: Normal mood and affect. Alert and oriented to person, place, and time. Test 11/24/16 08:32 11/24/16 09:09 11/24/16 09:25 11/25/16 05:02 Osmolality 267 (275-300) Magnesium Level 1.9mg/dL (1.6-2.6) Troponin T 0.010ug/L (0.0-0.011) Lactic Acid Level 1.7mmol/L (0.4-2.0) Urine Color Yellow (YELLOW) Urine Appearance Clear (CLEAR,HAZY) Urine pH 7.0 (5.0-8.0) Urine Specific [place] 1.005 (1.003-1.035) Urine Protein Negativemg/dL (NEG,TRACE) Urine Glucose (UA) Negativemg/dL (NEGATIVE) Urine Ketones 40mg/dL (NEGATIVE) Urine Occult Blood Trace (NEGATIVE) Urine Nitrite Negative (NEGATIVE) Urine Bilirubin Negative (NEGATIVE) Urine Urobilinogen Normalmg/dL (NORMAL) Urine Leukocyte Esterase Negative (NEGATIVE) Urine RBC 0-2/hpf (0-2) Urine WBC 0-5/hpf (0-5) Urine Epithelial Cells Few/hpf (NONE-MOD) Urine Crystals Oxalic acid crystals (NONE Urine Bacteria Few/hpf (NONE-FEW) Urine Hyaline Casts None/lpf (NONE) Urine Granular Casts None seen (NONE SEEN) Urine Waxy Casts None seen (NONE SEEN) Urine Red Blood Cell Casts None seen (NONE SEEN) Urine White Blood Cell Casts None seen (NONE SEEN) Urine Mucus None seen (None Seen) Urine Trichomonas None seen (NONE SEEN) Urine Yeast None (NONE SEEN) Urinalysis Comment None Urine Culture Reflexed Not indicated Urine Osmolality 171mOs/kH2O (250-1200) Urine Random Sodium 30mEq/L White Blood Count 5.8th/mm3 (3.8-10.1) Red Blood Count 4.29mil/mm3 (3.90-5.20) Hemoglobin 12.9g/dL (12.0-15.6) Hematocrit 37.9% (35.0-46.0) Mean Corpuscular Volume 88.3fL (81-100) Mean Corpuscular Hemoglobin 30.1pg (27.0-35.0) Mean Corpuscular Hemoglobin Concent 34.0% (32.0-37.0) Red Cell Distribution Width 12.8% (12.3-15.4) Platelet Count 139bil/L (150-400) Neutrophils (%) (Auto) 61.4% (40-74) Lymphocytes (%) (Auto) 21.7% (14-46) Monocytes (%) (Auto) 12.9% (4-12) Eosinophils (%) (Auto) 3.5% (0-5) Basophils (%) (Auto) 0.5% (0-3) Sodium Level 133mEq/L (134-144) Potassium Level 3.9mEq/L (3.5-5.2) Chloride Level 98mEq/L (97-108) Carbon Dioxide Level 23mmol/L (18-29) Blood Urea Nitrogen 13mg/dL (8-27) Creatinine 0.58mg/dL (0.57-1.00) Estimat Glomerular Filtration Rate 140mL/min (>59) Glucose Level 102mg/dL (60-99) Calcium Level 8.2mg/dL (8.5-10.1) Total Bilirubin 0.6mg/dL (0.0-1.2) Aspartate Amino Transf (AST/SGOT) 16U/L (0-50) Alanine Aminotransferase (ALT/SGPT) 8U/L (0-32) Alkaline Phosphatase 55U/L (25-165) Total Protein 5.1g/dL (6.4-8.4) Albumin 3.2g/dL (3.4-5.0) Discharge Medications Discharge Medications Aspirin (Aspirin) 81 Mg Tablet 81 MG PO DAILY Prescribed by: LAURIE VALERA DO Lisinopril (Lisinopril) 5 Mg Tablet 5 MG PO DAILY Prescribed by: LAURIE VALERA DO Metoprolol Tartrate (Metoprolol Tartrate) 25 Mg Tablet 50 MG PO BID Prescribed by: LAURIE VALERA DO Nitrofurantoin Monohyd/M-Cryst (MacroBid) 100 Mg Capsule 100 MG PO BID Prescribed by: LAURIE VALERA DO Omeprazole (Omeprazole) 20 Mg Capsule. 20 MG PO DAILY (Reported) Omeprazole (Omeprazole) 20 Mg Capsule. 20 MG PO DAILY Prescribed by: LAURIE VALERA DO Followup Plan Follow-up plan F/U with PCP in 7-10 days Discharge Diet: Heart Healthy Discharge Activity: Home Health Phyical Therapy Patient Instructions Please follow wound care directions, continue using the walker for ambulation Time spent Greater than 30 minutes was spent in preparation of discharge with greater than 50% of that time dedicated to patient counseling and coordination of care. Laurie Valera DO Nov 26, 2016 10:05
--- NOTE | 2016-11-26 17:54 | NUR ---
DISCHARGE PATIENT DISCHARGED HOME WITH GRANDDAUGHTER AFTER LUNCH TODAY. PATIENT AND DAUGHTER WERE GIVEN DISCHARGE INSTRUCTIONS AND BOTH AGREED TO UNDERSTANDING THEM. PRESCRIPTION GIVEN TO FAMILY MEMBER WHO WILL FILL FOR PATIENT. APPOINTMENT MADE FOR FOLLOW UP WITH PRIMARY DR. CASTANEDA GATHERED BY FAMILY MEMBER.
--- NOTE | 2016-11-26 22:50 | PCM.DIMED ---
Discharge Instructions Date of Service Nov 26, 2016 Dates of Hospitalization Nov 24, 2016 at 10:02 Discharge Diagnosis Discharge Diagnosis General weakness, age-related fragility, inability to take medications Medication Instructions Additional med instructions Please note you were given enough scripts to last through your follow up with your PCP Diet Discharge Diet: Heart Healthy Activity Discharge Activity: Home Health Phyical Therapy Call your provider Call your provider for: Fever or Chills, Shortness of breath, Bleeding, Chest pain, Vomitting, Excessive diarrhea, Weakness (unilateral) Patient Instructions Patient Instructions Please note increase in your metoprolol dosing Follow-up plan Patient is an 89yo woman admitted with hyponatremia. Patient lives alone and uses a 4 wheeled walker at baseline. She has CG's most days for 3-6 hours. She states she was alone and tried unsuccessfully for 3 hours to stand from the toilet due to weakness. Patient with severe thoracic kyphosis and redness noted on her lower/mid back. PLOF is independent with transfers and gait to mailbox etc, assist with ADL's and bathing. Recommend continued PT to progress mobility to PLOF. HHPT at discharge recommended for continued PT 2-3 times a week for 4-6 weeks. [facility] PT/OT Three times a week F/U with PCP in 7-10 days Tory Ward DO Nov 26, 2016 09:37
== END 2016-11-26 14:15 | disposition home or self-care (01) ==
LOC: EDBD 08:04 → EDUNIT# 08:04 → SED 08:04 → OSC 10:02
PROVIDERS: ADMIT Family Medicine; ATTEND Family Medicine
DX: R53.1 Weakness (principal); E87.1 Hypo-osmolality and hyponatremia; I10 Essential (primary) hypertension; N39.0 Urinary tract infection, site not specified; M81.0 Age-related osteoporosis without current pathological fracture; M41.9 Scoliosis, unspecified; I48.91 Unspecified atrial fibrillation; R00.0 Tachycardia, unspecified; K21.9 Gastro-esophageal reflux disease without esophagitis; L89.891 Pressure ulcer of other site, stage 1; L89.892 Pressure ulcer of other site, stage 2; M79.605 Pain in left leg; M54.32 Sciatica, left side; R10.817 Generalized abdominal tenderness; Z87.891 Personal history of nicotine dependence; Z79.82 Long term (current) use of aspirin; Z66 Do not resuscitate
CPT/HCPCS: 36415; 71010; 73522; 73551; 80053; 81000; 83605; 83735; 83930; 83935; 84300; 84484; 85025; 87040; 93005; 96361; 96365; 97162; 99285; G0378; G8978; G8979; J0696; J1644; J7030; J7040

== ENCOUNTER 2016-11-26 19:00 | Observation (INO) | payer MEDICARE, MEDICAID ==
[~2016-11-26] VITALS: Ht 149.9 cm; Wt 59.0 kg
[~2016-11-26 19:00] MED LIST changes: +NITR100 PO
[2016-11-26 19:17] VITALS: BP 158/101; PULSE 97; RESP 16; O2SAT 97
--- NOTE | 2016-11-26 19:37 | ED.REPORT ---
HPI-Chest Pain 40 and Over Date of Service Nov 26, 2016 ED Provider: Alexander Sultana DO Patient is an 89 year old female with a history of hypertension and paroxysmal atrial fibrillation who was discharged from the hospital earlier today who presents to the ED via EMS after a ground level fall. Associated symptoms include generalized weakness and left leg pain. The patient reports that she experienced a sharp pain in her leg, which caused her to fall and hit her head. Patient denies losing consciousness, neck pain, vomiting or head pain. She states that the pain is only with movement. En route, medics noticed that the patient's EKG showed some dysrhythmias. Patient was hospitalized after having a high blood pressure, a fall and complaining of weakness and left leg pain. During her stay in the hospital, she had a leg X-ray, which was unremarkable.Per the patient's daughter, the patient has not been taking her "heart medications" for the past month because she ran out. Nursing Notes Stated Complaint: GLF,LEFT LEG PAIN AND WEAKNESS Chief Complaint: Dysrhythmia/Cardiac Nursing Notes Reviewed: Yes Allergies: Coded Allergies: Penicillins (Verified Allergy, Severe, 05/16/15) fluocinonide (Verified Allergy, Severe, Rash, 05/16/15) amlodipine (Verified Allergy, Mild, 10/14/15) lactose (Verified Allergy, Mild, Headache, 05/16/15) Sulfa (Sulfonamide Antibiotics) (Verified Allergy, Unknown, 05/16/15) ciprofloxacin (Verified Allergy, Unknown, 05/16/15) Tendonitis per pt and family ciprofloxacin HCl (Verified Allergy, Unknown, 05/16/15) Tendonitis per pt and family cortisone (Verified Allergy, Unknown, 05/16/15) influenza virus vaccine, specific (Verified Allergy, Unknown, RASH, ITCHING, 05/16/15) pneumococcal vaccine (Verified Allergy, Unknown, SWELLING, RASH, 05/16/15) Scheduled Aspirin (Aspirin) 81 Mg Tablet 81 MG PO DAILY Lisinopril (Lisinopril) 5 Mg Tablet 5 MG PO DAILY Metoprolol Tartrate (Metoprolol Tartrate) 25 Mg Tablet 50 MG PO BID Nitrofurantoin Monohyd/M-Cryst (MacroBid) 100 Mg Capsule 100 MG PO BID Omeprazole (Omeprazole) 20 Mg Capsule.dr 20 MG PO DAILY Omeprazole (Omeprazole) 20 Mg Capsule.dr 20 MG PO DAILY General Time Seen by MD: 19:37 Chief Complaint Other (fall ) Hx Obtained From: Patient Arrived By: Ambulance Sudden in Onset?: No Onset Occurred: 3 days ago Symptom Duration: Intermittent Quality: Painful Severity: Current: Moderate Recent Healthcare: Recent doctor visit, Recent hospitalization Similar Sx Previous: Yes Past Medical History Past Medical History sciatica scoliosis osteoporosis Unspecified irregular heart rhythm Reports: GERD, Hypertension Reports: Atrial fibrillation Past Surgical History None reported Smoking History Former Smoker Social History Other Social History: Good social support Ambulatory Status Walker Review of Systems Constitutional: Reports: Weakness - generalized, Denies: Chills, Fever Respiratory: Denies: Non-productive cough, Shortness of breath GI: Denies: Nausea, Vomiting Musculoskeletal: Reports: Extremity pain, Denies: Neck pain Skin: Denies Itching, Denies Rash Neurologic: Reports: Problem walking, Weakness, Denies: Change LOC, Headache, Numbness Complete sys rev & neg: except as marked. Physical Exam Initial Vital Signs Vital Signs (First) Date Time Temp Pulse Resp B/P Pulse Ox O2 Delivery O2 Flow Rate FiO2 11/26/16 19:17 36.9 97 16 158/101 97 Room Air 11/27/16 00:49 2 Initial VS: Reviewed General/Constitutional: Awake, Alert, No acute distress Respiratory / Chest: Atraumatic, Breath sounds NL, Breath sounds = bilat, No respiratory distress Cardiovascular: Heart rate NL Heart Rate / Rhythm: Positive: Irregular rhythm Abdomen: Atraumatic, Soft, Non-tender Lower Extremity / Pelvis / MS: Neurologic intact, Vascular intact good dp pulses tender left lateral thigh warm foot reduced range of motion of left thigh due to pain Skin: Atraumatic, Color NL, No rash, Warm, Dry Neurologic: Oriented X3, Speech NL, No motor deficits, No sensory deficits Psychiatric: Affect NL, Mood NL Head / Eyes: Atraumatic, Normocephalic, PERRL, EOMI Interpretation & Diagnostics Interpretation & Diagnostics: CT THORACIC SPINE: IMPRESSION: Compression fracture deformities most notably spanning from T8 and distally. Degree of osteopenia somewhat limits assessment for superimposed acute or subacute fracture. No discernible hyodense fracture line seen. Could consider MRI to assess for bone marrow edema for persistent clinical concern. CT LUMBAR SPINE: IMPRESSION: Chronic-appearing osteoporotic compression fracture at multiple levels. Superimposed acute or subacute component not excluded given degree of osteopenia. Superimposed fracture involving the superior endplate of L5 suspected. Otherwise, no discernible hyodense fracture line noted. Could consider MRI to assess for bone marrow edema. Persistent clinical concern. Lab Results Interpretation Result Diagram: 11/26/16 2019 11/26/16 2019 Test 11/26/16 20:19 11/26/16 20:22 11/26/16 23:55 White Blood Count 5.9th/mm3 (3.8-10.1) Red Blood Count 4.62mil/mm3 (3.90-5.20) Hemoglobin 13.9g/dL (12.0-15.6) Hematocrit 40.3% (35.0-46.0) Mean Corpuscular Volume 87.2fL (81-100) Mean Corpuscular Hemoglobin 30.1pg (27.0-35.0) Mean Corpuscular Hemoglobin Concent 34.5% (32.0-37.0) Red Cell Distribution Width 13.0% (12.3-15.4) Platelet Count 145bil/L (150-400) Neutrophils (%) (Auto) 68.5% (40-74) Lymphocytes (%) (Auto) 15.3% (14-46) Monocytes (%) (Auto) 12.8% (4-12) Eosinophils (%) (Auto) 2.9% (0-5) Basophils (%) (Auto) 0.3% (0-3) D-Dimer 12.91mg/L FEU (<0.50) Sodium Level 132mEq/L (134-144) Potassium Level 3.9mEq/L (3.5-5.2) Chloride Level 96mEq/L (97-108) Carbon Dioxide Level 21mmol/L (18-29) Blood Urea Nitrogen 12mg/dL (8-27) Creatinine 0.43mg/dL (0.57-1.00) Estimat Glomerular Filtration Rate 198mL/min (>59) Glucose Level 121mg/dL (60-99) Calcium Level 8.9mg/dL (8.5-10.1) Total Bilirubin 0.4mg/dL (0.0-1.2) Aspartate Amino Transf (AST/SGOT) 24U/L (0-50) Alanine Aminotransferase (ALT/SGPT) 19U/L (0-32) Alkaline Phosphatase 70U/L (25-165) Troponin T 0.012ug/L (0.0-0.011) Total Protein 6.6g/dL (6.4-8.4) Albumin 3.6g/dL (3.4-5.0) Hold Maria Top Tube Received (Received) Urine Color Yellow (YELLOW) Urine Appearance Clear (CLEAR,HAZY) Urine pH 5.5 (5.0-8.0) Urine Specific [place] <1.005 (1.003-1.035) Urine Protein Negativemg/dL (NEG,TRACE) Urine Glucose (UA) Negativemg/dL (NEGATIVE) Urine Ketones Negativemg/dL (NEGATIVE) Urine Occult Blood Trace (NEGATIVE) Urine Nitrite Negative (NEGATIVE) Urine Bilirubin Negative (NEGATIVE) Urine Urobilinogen Normalmg/dL (NORMAL) Urine Leukocyte Esterase Trace (NEGATIVE) Urine RBC 0-2/hpf (0-2) Urine WBC 0-5/hpf (0-5) Urine Epithelial Cells Occasional/hpf (NONE-MOD) Urine Crystals None seen (NONE SEEN) Urine Bacteria None/hpf (NONE-FEW) Urine Hyaline Casts None/lpf (NONE) Urine Granular Casts None seen (NONE SEEN) Urine Waxy Casts None seen (NONE SEEN) Urine Red Blood Cell Casts None seen (NONE SEEN) Urine White Blood Cell Casts None seen (NONE SEEN) Urine Mucus None seen (None Seen) Urine Trichomonas None seen (NONE SEEN) Urine Yeast None (NONE SEEN) Urinalysis Comment None Urine Culture Reflexed Indicated Hold Urine Received (Received) ECG Interpretation ECG Interpretation: atrial fibrillation, rate 111 no evidence of a STEMI left ventricular hypertrophy prolonged QT interval nonspecific inferior T wave abnormalities Time: 19:29 Interpreted by: ED physician X-Ray Interpretation Xray Interpretation: IMPRESSION: No acute bony abnormality is seen in the left femur. Dictated by: Johnnie Fox M.D. on 11/26/2016 at 21:54 Approved by: Johnnie Fox M.D. on 11/26/2016 at 21:54 X-Ray Ordered: Femur left Interpretation / Wet Read by: Interpret - Radiologist Xray Interpretation: IMPRESSION: No abnormality is identified in the AP pelvis and frog-leg view of the left hip. Dictated by: Johnnie Fox M.D. on 11/26/2016 at 21:55 Approved by: Johnnie Fox M.D. on 11/26/2016 at 21:57 X-Ray Ordered: Pelvis, Hip left Interpretation / Wet Read by: Interpret - Radiologist Xray Interpretation: osteoporosis, age indetermine fractures plan for CT Study Performed: lumbar spine Interpretation / Wet Read by: Wet read ED physician CT Head Interpretation IMPRESSION: No acute intracranial abnormality. Moderate atrophy and microvascular ischemic change of aging. Dictated by: Johnnie Fox M.D. on 11/26/2016 at 21:38 Approved by: Johnnie Fox M.D. on 11/26/2016 at 21:54 US Focused Lower Ext Venous IMPRESSION: No evidence for deep venous thrombosis is found in the left lower extremity with this duplex venous Doppler study. Small Navas's cyst is noted, approximately 2 cm in greatest dimension. Dictated by: Johnnie Fox M.D. on 11/26/2016 at 22:45 Approved by: Johnnie Fox M.D. on 11/26/2016 at 22:46 Exam Performed by: Allied health pract Exam Interpreted by: Radiologist Indication: Leg pain left Re-Eval/Medical Decision Med Decision/Clinical Course Anupama was just discharged home today. Unfortunately she suffered another significant fall. She hit her head. She probably refractured her lumbar spine. And she has rather severe left leg pain. In spite of opiates she is in no condition be discharged home. She still miserable. She still unstable on her gait. Family is highly concerned. I think discharge home is inappropriate. As such she will be admitted back to the hospital. Time of Eval: 20:56 Re-Evaluation/Progress Note: Discussed plan for X-ray and admit. Patient understands and agrees to plan. All questions were addressed. Time of Eval: 22:25 Re-Evaluation/Progress Note: Discussed X-ray results, US results and plan for CT. Consultation : Referral / Consult Name: Paty Farah DO Consulted With: Hospitalist Call Returned at: 00:32 Chief Client Officer: Agrees with eval, Agrees with plan, Accepts admit Counseled Regarding: Diagnosis, Lab results, Need for admission Discharge & Departure Primary Impression: Multiple falls Additional Impressions: Unsteady gait Left leg pain Atrial arrhythmia Elevated troponin Compression fracture of L5 lumbar vertebra Encounter type: initial encounter Fracture type: closed Qualified Code: S32.050A - Wedge compression fracture of fifth lumbar vertebra, initial encounter for closed fracture Disposition: ADMITTED TO HOSPITAL Discharge Condition All VS Reviewed: Yes Condition: Stable Referrals: Divina Lindsey MD (PCP) Rubiaibmelissa Attestation Portions of this note were transcribed by Natali Aparicio. I, Dr. Sultana personally performed the history, physical exam and medical decision-making; I reviewed and confirmed the accuracy of the information in the transcribed note. Signed by: Lynn Laird, 11/26/16 copies to: Divina Lindsey MD, Todd P DO Nov 26, 2016 19:37 Samreen Aparicio Nov 26, 2016 20:03
[2016-11-26 20:29] LABS: BASOPHILS % (AUTO) 0.3 % (0-3); EOSINOPHILS % (AUTO) 2.9 % (0-5); MONOCYTES % (AUTO) 12.8 % (4-12); Mean Corpuscular Hemoglobin 30.1 pg (27.0-35.0); Mean Corpuscular Volume 87.2 fL (81-100); NEUTROPHILS % (AUTO) 68.5 % (40-74); Platelet Count 145 bil/L (150-400)
[2016-11-26 20:39] LABS: APPEARANCE,URINE CLEAR (CLEAR,HAZY); COLOR,URINE YELLOW (YELLOW); PH,URINE 5.5 (5.0-8.0)
[2016-11-26 20:40] LABS: OCCULT BLOOD,URINE TRACE (NEGATIVE); UROBILINOGEN,URINE NORMAL (NORMAL)
[2016-11-26 20:50] LABS: TROPONIN T 0.012 ug/L (0.0-0.011)
--- NOTE | 2016-11-26 21:55 | DRSVH ---
PROCEDURE: CT BRAIN WITHOUT CONTRAST ([id number]) INDICATIONS: fall hit head, saw stars TECHNIQUE: Noncontrast 4.5 mm thick angled axial sections acquired from the foramen magnum to the vertex, with c oronal reformats. COMPARISON: None. FINDINGS: Image quality: Good CSF spaces: Basal cisterns are patent. No extra-axial fluid collections. The ventricles are symmet anayeli in size and shape. Brain: No intracranial bleeds or masses. There is cerebral volume loss for age, with resultant vent ricular and sulcal prominence. There are periventricular and deep white matter chronic small vessel ischemic changes. There is intracranial internal carotid artery atherosclerosis. Skull and face: Calvarium and visualized facial bones appear intact, without suspicious lesions. Sinuses: Visualized sinuses and mastoids are clear. IMPRESSION: No acute intracranial abnormality. Moderate atrophy and microvascular ischemic change of aging. Dictated by: Johnnie Fox M.D. on 11/26/2016 at 21:38 Approved by: Johnnie Fox M.D. on 11/26/2016 at 21:54
--- NOTE | 2016-11-26 21:56 | DRSVH ---
PROCEDURE: X-RAY LEFT FEMUR, TWO VIEWS ([id number]) INDICATIONS: fall and pain TECHNIQUE: 2 views of the femur were acquired. COMPARISON: None. FINDINGS: Bones: No fractures or dislocations. No suspicious bony lesions. Soft tissues: No suspicious soft tissue calcifications or masses. IMPRESSION: No acute bony abnormality is seen in the left femur. Dictated by: Johnnie Fox M.D. on 11/26/2016 at 21:54 Approved by: Johnnie Fox M.D. on 11/26/2016 at 21:54
--- NOTE | 2016-11-26 21:59 | DRSVH ---
PROCEDURE: X-RAY PELVIS W/LAT HIP (LT) ([id number]) INDICATIONS: fall and pain TECHNIQUE: AP pelvis with lateral view(s) of the left hip(s). COMPARISON: [facility], , XR PELVIS W BILAT LAT HIPS 3VW, 11/24/2016, 15:20. FINDINGS: Bones: No fractures or dislocations. Pelvic ring appears intact. No suspicious bony lesions. Soft tissues: The visualized bowel gas pattern is normal. No suspicious soft tissue calcifications. IMPRESSION: No abnormality is identified in the AP pelvis and frog-leg view of the left hip. Dictated by: Johnnie Fox M.D. on 11/26/2016 at 21:55 Approved by: Johnnie Fox M.D. on 11/26/2016 at 21:57
[2016-11-26 22:01] VITALS: BP 158/88; PULSE 95; RESP 23; O2SAT 95
--- NOTE | 2016-11-26 22:48 | DRSVH ---
PROCEDURE: US VEINOUS LEG DUPLEX UNILATERAL, LEFT INDICATIONS: left thigh and leg pain TECHNIQUE: Real-time imaging, as well as color and pulse Doppler interrogation, were performed of the lower extr emity deep veins from the inguinal ligament to the popliteal fossa. COMPARISON: None. FINDINGS: The deep veins are normally compressible, and free of intraluminal thrombus. Color and pu lse Doppler demonstrate normal phasic intraluminal flow. There is normal augmentation response to di stal compression maneuver. IMPRESSION: No evidence for deep venous thrombosis is found in the left lower extremity with this du plex venous Doppler study. Small Navas's cyst is noted, approximately 2 cm in greatest dimension. Dictated by: Johnnie Fox M.D. on 11/26/2016 at 22:45 Approved by: Johnnie Fox M.D. on 11/26/2016 at 22:46
[2016-11-26 23:47] VITALS: BP 167/88; PULSE 86; RESP 16; O2SAT 94
[2016-11-27] VITALS (10 sets, daily range): BP systolic 126–178; BP diastolic 71–96; PULSE 66–86; RESP 16–22; O2SAT 92–97
[2016-11-27] MEDS: Sodium Chloride LOK Flush 10 mL Syringe IVFLUSH SCH ×3 (00:30→15:53)
[2016-11-27] MEDS ORDERED: Polyethylene Glycol (PEG) 17 Gm Powder PO PRN (01:10)
[2016-11-27] MEDS ORDERED: Alum-Mag Hydrox-Simeth 30 mL Suspension PO PRN (01:10)
[2016-11-27] MEDS ORDERED: Ondansetron 2 mg/mL 2 mL Inj IVPUSH PRN (01:10)
--- NOTE | 2016-11-27 01:24 | PCM.HPMED ---
Subjective Date of Service Nov 27, 2016 Primary Provider: Admitting Physician: Paty Farah DO Primary Care Physician: Divina Lindsey MD Attending Physician: Paty Farah DO Admit Status: From the Emergency Department Chief Complaint: Ground-level fall, weakness History of Present Illness: Anupama Wiggins is a pleasant 89-year-old female with a history of hypertension, paroxysmal atrial fibrillation, and osteoporosis who presented to the ED via EMS after a ground-level fall. She reports a sharp pain in her left hip that caused her to list to that side, where she lost her balance and fell onto her back/side, hitting the back of her head on her stove. She did not lose consciousness. She reports sharp left leg pain that is intermittent with movement, and does not radiate. She says she still feels weak but denies any chest pain, palpitations, headache, vision or hearing changes, worsening back pain, nausea or vomiting. She is not on any blood thinning medication. On her way into the ED, EMS noted dysrhythmias on her EKG. Initial EKG in the ED significant for atrial fibrillation with a rate of 111. Of note, the patient was discharged from the hospital earlier this afternoon , where she was treated for generalized weakness and her left leg x-rays were negative. She was to have home health 3 times weekly for PT to help regain strength. Review of Systems: Comprehensive review of systems was conducted with the patient and found to be negative except as noted above in HPI. Allergies Coded Allergies: Penicillins (Verified Allergy, Severe, 05/16/15) fluocinonide (Verified Allergy, Severe, Rash, 05/16/15) amlodipine (Verified Allergy, Mild, 10/14/15) lactose (Verified Allergy, Mild, Headache, 05/16/15) Sulfa (Sulfonamide Antibiotics) (Verified Allergy, Unknown, 05/16/15) ciprofloxacin (Verified Allergy, Unknown, 05/16/15) Tendonitis per pt and family ciprofloxacin HCl (Verified Allergy, Unknown, 05/16/15) Tendonitis per pt and family cortisone (Verified Allergy, Unknown, 05/16/15) influenza virus vaccine, specific (Verified Allergy, Unknown, RASH, ITCHING, 05/16/15) pneumococcal vaccine (Verified Allergy, Unknown, SWELLING, RASH, 05/16/15) Home Medications Scheduled Aspirin (Aspirin) 81 Mg Tablet 81 MG PO DAILY Lisinopril (Lisinopril) 5 Mg Tablet 5 MG PO DAILY Metoprolol Tartrate (Metoprolol Tartrate) 25 Mg Tablet 50 MG PO BID Omeprazole (Omeprazole) 20 Mg Capsule.dr 20 MG PO DAILY PMH sciatica scoliosis osteoporosis Unspecified irregular heart rhythm GERD Hypertension Atrial fibrillation Surgical History Tonsillectomy Appendectomy Family History Mother of old age Dad from stroke Social History Hx Alcohol Use: Yes Hx Substance Use: No Hx Tobacco Use: No Smoking Status: Former Smoker Living Arrangement: Alone (caregiver support) Exam Vital Signs Vital Sign - Last Date Time Temp Pulse Resp B/P Pulse Ox O2 Delivery O2 Flow Rate FiO2 11/27/16 01:01 84 22 156/71 95 Nasal Cannula 2 11/26/16 19:17 36.9 Exam General: No acute distress, well-developed, well-nourished, appropriately interactive HEENT: Normocephalic, atraumatic. External ears without defect. Pupils equal, round, and reactive to light and accommodation. Oropharynx free of erythema and cobble stoning with moist mucosa. Neck: Supple with full range of motion. No jugular venous distension. No bruits. No lymphadenopathy or thyromegaly. Cardiovascular: Regular rate and rhythm with no murmurs, rubs, or gallops appreciated. Heart rate steady at 70-75 during our exam. Pulmonary: Clear to auscultation bilaterally with no crackles, wheezes, or rhonchi. Normal respiratory effort with no use of accessory muscles. Abdomen: Bowel tones present. Soft, nontender, nondistended. No hepatosplenomegaly or masses appreciated. Extremities: No clubbing, cyanosis, edema. Extensive varicosities on bilateral LE. No ecchymoses on left thigh/hip region without tenderness to palpation. Skin: Normal temperature, turgor, and texture; no rash, ulcers, or subcutaneous nodules appreciated. Neurological: Cranial nerves grossly intact. 4/5 muscle strength globally with appropriate tone and bulk. No focal deficits. Psychiatric: Normal mood and affect. Alert and oriented to person, place, and time. Lab and Diagnostics Result Diagram: 11/26/16201811/26/162018 Microbiology UA, pending X-Rays, CTs and MRIs Lower extremity ultrasound 11/26/2016 IMPRESSION: No evidence for deep venous thrombosis is found in the left lower extremity with this duplex venous Doppler study. Small Navas's cyst is noted, approximately 2 cm in greatest dimension. Dictated by: Johnnie Fox M.D. on 11/26/2016 at 22:45 Approved by: Johnnie Fox M.D. on 11/26/2016 at 22:46 Pelvis ultrasound 11/26/2016 IMPRESSION: No abnormality is identified in the AP pelvis and frog-leg view of the left hip. Dictated by: Johnnie Fox M.D. on 11/26/2016 at 21:55 Approved by: Johnnie Fox M.D. on 11/26/2016 at 21:57 Left left hip/femur ultrasound 11/26/2016 IMPRESSION: No acute bony abnormality is seen in the left femur. Dictated by: Johnnie Fox M.D. on 11/26/2016 at 21:54 Approved by: Johnnie Fox M.D. on 11/26/2016 at 21:[address] 11/25/2016 IMPRESSION: No acute intracranial abnormality. Moderate atrophy and microvascular ischemic change of aging. Dictated by: Johnnie Fox M.D. on 11/26/2016 at 21:38 Approved by: Johnnie Fox M.D. on 11/26/2016 at 21:[address] 11/25/2016 CT THORACIC SPINE: IMPRESSION: Compression fracture deformities most notably spanning from T8 and distally. Degree of osteopenia somewhat limits assessment for superimposed acute or subacute fracture. No discernible hyodense fracture line seen. Could consider MRI to assess for bone marrow edema for persistent clinical concern. Lumbar spine CT 11/17/2016 CT LUMBAR SPINE: IMPRESSION: Chronic-appearing osteoporotic compression fracture at multiple levels. Superimposed acute or subacute component not excluded given degree of osteopenia. Superimposed fracture involving the superior endplate of L5 suspected. Otherwise, no discernible hyodense fracture line noted. Could consider MRI to assess for bone marrow edema. Persistent clinical concern. 12-lead ECG ECG Interpretation: atrial fibrillation, rate 111 no evidence of a STEMI left ventricular hypertrophy prolonged QT interval nonspecific inferior T wave abnormalities Time: 19:29 Interpreted by: ED physician Assessment & Plan Anupama Wiggins is a pleasant 89-year-old female with a history of hypertension, paroxysmal atrial fibrillation, and osteoporosis who presented to the ED via EMS after a ground-level fall that occurred due to a sharp pain in her left leg. Ground-level fall, present on admission. Acute. Ongoing. - Likely due to her weakness and left leg pain but she does have arrhythmia history - Patient has extensive history of osteoporosis with multiple compression fractures; denies any pain at this time - Multiple imaging studies negative for left leg/hip fractures - Consider MRI studies as radiology reports recommend for further evaluation - She was seen by PT earlier today prior to her discharge with medications for home health; will not reorder PT eval at this time - Monitor on telemetry - Avoiding anticoagulation at this time due to acute trauma and recurrent falls Elevated troponin, present on admission. Acute. Ongoing. - Likely due to stress, demand of fall - Patient asymptomatic; no chest pain or palpitations, shortness of breath - EKG significant for atrial fibrillation and no ST changes - Trend troponin 2 - Repeat EKG in the morning - Monitor on telemetry Paroxysmal atrial fibrillation, present on admission. Chronic. - Continue metoprolol tartrate 50 mg twice daily - Continue aspirin 81 mg daily Hypertension, present on admission. Chronic. - Continue lisinopril 5 mg daily GERD, present on admission. Chronic. - Continue omeprazole 20 mg daily PRN Medications - Acetaminophen as needed for mild pain/fever/headache - Bowel regimen as needed - Antiemetic as needed - SubQ heparin held for now with recent fall concern. SCD's on. Patient status: Patient is admitted under observation status with expected length of stay less than 2 midnights due to severity of presenting symptoms, risk of adverse event, and complexity of treatment plan. GI Prophylaxis: Proton Pump Inhibitor VTE Prophylaxis Indicated: Contraindicated (recent fall, possible bleed) Resuscitation Status: DNR/DNI:Do Not Resuscitate/Intubate Attending Statement The patient was seen and examined together with house staff on 11/27/2016 and I agree with the history, exam and plan as outlined in the note above. copies to: Divina Lindsey MD, Jeffery S DO Nov 27, 2016 01:24 Paty Farah DO Nov 27, 2016 04:44
[2016-11-27] MEDS ORDERED: 0.9% Sodium Chloride 1,000 ML IV SCH (01:55)
[2016-11-27 05:40] LABS: BASOPHILS % (AUTO) 0.5 % (0-3); EOSINOPHILS % (AUTO) 2.4 % (0-5); MONOCYTES % (AUTO) 13.6 % (4-12); Mean Corpuscular Hemoglobin 30.4 pg (27.0-35.0); Mean Corpuscular Volume 87.2 fL (81-100); NEUTROPHILS % (AUTO) 64.1 % (40-74); Platelet Count 142 bil/L (150-400)
--- NOTE | 2016-11-27 08:43 | DRSVH ---
PROCEDURE: CT THORACIC SPINE WITHOUT CONTRAST ([id number]) INDICATIONS: fall,abnormal xrays TECHNIQUE: Noncontrast 3 mm thick sections acquired through the region of interest in the thoracic spine. Sagit stephanie and coronal reformats were then constructed. For radiation dose reduction, the following was use d: automated exposure control. COMPARISON: [facility], RG, SPINE THORACIC 3VW, 02/07/2005, 7:38. [facility], LUMBAR [facility] W/O CONTRAST, 08/03/2012, 9:59. [facility], CT, L-SPINE W/O CONTRAST, 09/22/2012, 23:37. [facility], CT, CT LUMBAR SPINE WO CON, 05/16/2015, 16:36. [facility], CT, L-SPINE W/O CONTRAST, 05/22/2013, 19:26. [facility], CR, XR LUMBAR SPIN E 2 OR 3VW, 11/26/2016, 22:15. [facility], CR, XR THORACIC SPINE 2VW, 11/26/2016, 22:15. FINDINGS: Image quality: Excellent. Bones: There is normal overall bony alignment. Multiple vertebral body compression fractures are pre sent, severe at T12 and L1, moderate at T6 and T8, and mild to moderate T9. Severe compression fract ures at L1 and T12 were present on multiple prior examinations, compatible with chronic fractures. Th ere is severe osteopenia. No suspicious sclerotic or lytic bony lesions. Central spinal canal is of normal overall caliber. Soft tissues: No paravertebral masses or hematomas. Visualized posteromedial lungs appear clear. IMPRESSION: 1. Multiple compression fractures in thoracic spine and visualized upper lumbar spine, severe at T12 and L1, moderate at T6 and T8, and mild to moderate T9. Compression fractures at T12 and L1 are certified anesthesiologist assistant jeanne. Other fractures may be chronic fractures or acute superimposed on chronic fractures. If clinica l suspicion for acute fractures is high, MRI is suggested for further evaluation. 2. Severe osteopenia. Dictated by: Laura Hyatt M.D. on 11/27/2016 at 8:26 Approved by: Laura Hyatt M.D. on 11/27/2016 at 8:41
--- NOTE | 2016-11-27 09:07 | DRSVH ---
PROCEDURE: CT LUMBAR SPINE WITHOUT CONTRAST ([id number]) INDICATIONS: fall,abnormal xrays TECHNIQUE: Noncontrast 3 mm thick sections acquired from the T12 level to the sacrum. Sagittal and coronal refo rmats were constructed. For radiation dose reduction, the following was used: automated exposure co ntrol. COMPARISON: [facility], CT, L-SPINE W/O CONTRAST, 09/22/2012, 23:37. [facility], L-[facility] W/O CONTRAST, 05/22/2013, 19:26. [facility], CT, CT LUMBAR SPINE WO CON, 05/16/2015, 16:36. FINDINGS: Image quality: Excellent. Bones: There is normal bony alignment. There severe vertebral body compression fractures at L1, L2, L3, L4 and L5, most severe at L1. Compression fractures were present on multiple prior studies, but progressively increased. Compared to the last examination on 05/16/2015, there is further decrease in vertebral body height at L5. No suspicious lytic or blastic bony lesions. Degenerative disc and face t disease are present scattered in lumbar spine. Central spinal caliber is of normal overall caliber. No pars defects. Soft tissues: No retroperitoneal masses or hematomas. Visualized aorta is normal in caliber. IMPRESSION: Severe compression fractures throughout the entire lumbar spine. The compression fracture s are likely chronic although there is further worsening of compression deformity at L5 since the las t lumbar spine CT dated 05/16/2015. If superimposed acute compression fracture is suspected, MRI would be helpful. No significant discrepancy with the night shift manager radiology preliminary report. Dictated by: Laura Hyatt M.D. on 11/27/2016 at 8:52 Approved by: Laura Hyatt M.D. on 11/27/2016 at 9:05
[2016-11-27] MEDS: Pantoprazole 40 mg ER24 Tablet PO SCH (09:12)
--- NOTE | 2016-11-27 16:54 | DRSVH ---
PROCEDURE: X-RAY THORACIC SPINE, 2 VIEWS INDICATIONS: fall, pain TECHNIQUE: 3 views of the thoracic spine were acquired. COMPARISON: [facility], CR, CHEST 2VW, 10/27/2012, 15:20. [facility], CT, L- SPINE W/O CONTRAST, 05/22/2013, 19:26. [facility], CT, CT LUMBAR SPINE WO CON, 11/26/2016, 23:04. [facility], CT, CT THORACIC SPINE WO CON, 11/26/2016, 23:04. FINDINGS: Bones: Examination is limited secondary to diffuse osteopenia and kyphosis involving the lower thorac ic spine. Within these limits, multilevel compression fractures present involving the lower thoracic and upper lumbar region, most notably at the T8 level. Fractures are likely chronic given the limit ations, clinical correlation is recommended. Multilevel degenerative change again noted. Soft tissues: No paravertebral stripe thickening. IMPRESSION: Multilevel compression fractures within the thoracic lumbar spine, most notably at the T8 level which are likely chronic. Recommend clinical correlation and if indicated MRI could be perfor med for more accurate characterization and to exclude any acute fractures. Dictated by: Bakari YOUNGER Interpreted: Dilia Mercado MD on 11/27/2016 at 8:34 Approved by: Rashi Child M.D. on 11/27/2016 at 16:51
--- NOTE | 2016-11-27 16:54 | DRSVH ---
PROCEDURE: X-RAY LUMBAR SPINE, 2 OR 3 VIEW INDICATIONS: fall, pain TECHNIQUE: 3 views of the lumbar spine were acquired. COMPARISON: , CT, CT THORACIC SPINE WO CON, 11/26/2016, 23:04. [facility], CT, L-SPINE W/O CONTRAST, 05/22/2013, 19:26. , CT, CT LUMBAR SPINE WO CON, 11/26/2016, 23:04. FINDINGS: Bones: Examination is limited by diffuse osteopenia. Within these limits multilevel lumbar spine com pression fractures are noted which likely are chronic but superimposed acute or subacute component ca nnot be excluded given the degree of osteopenia. Degenerative disc and facet disease redemonstrated. Levoscoliosis centered at the thoracolumbar junction. Soft tissues: Overlying bowel gas pattern is normal. No suspicious soft tissue calcifications. IMPRESSION: Multilevel lumbar spine compression fractures which are likely chronic but acute componen t cannot be excluded given the diffuse osteopenia which is present. If indicated MRI could be perfor med for further assessment to exclude acute fractures. Dictated by: Bakari YOUNGER Interpreted: Dilia Mercado MD on 11/27/2016 at 8:37 Approved by: Rashi Child M.D. on 11/27/2016 at 16:52
[2016-11-28] VITALS (8 sets, daily range): BP systolic 144–179; BP diastolic 60–78; PULSE 53–103; RESP 16; O2SAT 91–97
[2016-11-28] MEDS: Sodium Chloride LOK Flush 10 mL Syringe IVFLUSH SCH ×4 (01:26→23:45)
[2016-11-28] MEDS: Pantoprazole 40 mg ER24 Tablet PO SCH (07:39)
--- NOTE | 2016-11-28 15:18 | PCM.PNMED ---
Subjective Date of Service Nov 28, 2016 Subjective Patient reports no acute complaints this morning. States she is still feeling weaker than her baseline, and related some of the assistance of physical therapy today. Her hip pain is improved since fall prior to admission. Exam Vital Signs Vital Sign - Last Date Time Temp Pulse Resp B/P Pulse Ox O2 Delivery O2 Flow Rate FiO2 11/28/16 13:29 37.1 72 16 144/60 97 Room Air 11/27/16 09:04 2.00 Intake and Output 11/27/16 11/27/16 11/28/16 Cumulative From/Thru 15:00 23:00 07:00 11/26/16 19:17 - 11/28/16 06:25 Intake Total 960 ml 100 ml 1825 ml Output Total 1300 ml 350 ml 2100 ml Balance -340 ml -250 ml -275 ml Intake Oral 960 ml 100 ml 1600 ml IV Total 225 ml Output Urine Total 1300 ml 350 ml 2100 ml # Voids 2 # Bowel Movements 1 1 General: Alert, Oriented X3, Cooperative, No Acute Distress Mouth: Mucous Membr Moist/[place] Chest & Lungs: Clear to auscultation & percussion Cardiovascular: Regular Rate/Rhythm Extremities: No cyanosis/clubbing/edma bilat Neurological: Grossly Neurologically Intact, Other (generalized weakness) IVs and Medications Medications Reviewed: Medications were reviewed in detail Lab and Diagnostics Result Diagram: 11/27/16 0505 11/27/16 0505 Microbiology UA, pending X-Rays, CTs and MRIs Lower extremity ultrasound 11/26/2016 IMPRESSION: No evidence for deep venous thrombosis is found in the left lower extremity with this duplex venous Doppler study. Small Navas's cyst is noted, approximately 2 cm in greatest dimension. Dictated by: Johnnie Fox M.D. on 11/26/2016 at 22:45 Approved by: Johnnie Fox M.D. on 11/26/2016 at 22:46 Pelvis ultrasound 11/26/2016 IMPRESSION: No abnormality is identified in the AP pelvis and frog-leg view of the left hip. Dictated by: Johnnie Fox M.D. on 11/26/2016 at 21:55 Approved by: Johnnie Fox M.D. on 11/26/2016 at 21:57 Left left hip/femur ultrasound 11/26/2016 IMPRESSION: No acute bony abnormality is seen in the left femur. Dictated by: Johnnie Fox M.D. on 11/26/2016 at 21:54 Approved by: Johnnie Fox M.D. on 11/26/2016 at 21:[address] 11/25/2016 IMPRESSION: No acute intracranial abnormality. Moderate atrophy and microvascular ischemic change of aging. Dictated by: Johnnie Fox M.D. on 11/26/2016 at 21:38 Approved by: Johnnie Fox M.D. on 11/26/2016 at 21:[address] 11/25/2016 CT THORACIC SPINE: IMPRESSION: Compression fracture deformities most notably spanning from T8 and distally. Degree of osteopenia somewhat limits assessment for superimposed acute or subacute fracture. No discernible hyodense fracture line seen. Could consider MRI to assess for bone marrow edema for persistent clinical concern. Lumbar spine CT 11/17/2016 CT LUMBAR SPINE: IMPRESSION: Chronic-appearing osteoporotic compression fracture at multiple levels. Superimposed acute or subacute component not excluded given degree of osteopenia. Superimposed fracture involving the superior endplate of L5 suspected. Otherwise, no discernible hyodense fracture line noted. Could consider MRI to assess for bone marrow edema. Persistent clinical concern. 12-lead ECG ECG Interpretation: atrial fibrillation, rate 111 no evidence of a STEMI left ventricular hypertrophy prolonged QT interval nonspecific inferior T wave abnormalities Time: 19:29 Interpreted by: ED physician Assessment & Plan Anupama Wiggins is a pleasant 89-year-old female with a history of hypertension, paroxysmal atrial fibrillation, and osteoporosis who presented to the ED via EMS after a ground-level fall that occurred due to a sharp pain in her left leg. Ground-level fall, present on admission. Acute. Ongoing. - Likely due to her weakness and left leg pain but she does have arrhythmia history - Patient has extensive history of osteoporosis with multiple compression fractures; denies any pain at this time - Multiple imaging studies negative for left leg/hip fractures - Consider MRI studies as radiology reports recommend for further evaluation, though given the improving hip pain this will be deferred at this time. - Reevaluation by physical therapy, recommend placement at [facility] facility - Social workers contacted [facility], bed likely available soon as tomorrow. Patient is amenable to this plan - Avoiding anticoagulation at this time due to acute trauma and recurrent falls Elevated troponin, present on admission. Acute. Ongoing. - Likely due to stress, demand of fall - Patient asymptomatic; no chest pain or palpitations, shortness of breath - EKG significant for atrial fibrillation and no ST changes - Trended troponins which remain negative 2 - Repeat EKG in the morning - Monitored on telemetry acute abnormality Paroxysmal atrial fibrillation, present on admission. Chronic. - Continue metoprolol tartrate 50 mg twice daily - Continue aspirin 81 mg daily Hypertension, present on admission. Chronic. - Continue lisinopril 5 mg daily GERD, present on admission. Chronic. - Continue omeprazole 20 mg daily Disposition: Discharge to SNF as soon as tomorrow for continued strengthening. Hopeful discharge home once rehab have been completed. PRN Medications - Acetaminophen as needed for mild pain/fever/headache - Bowel regimen as needed - Antiemetic as needed - SubQ heparin held for now with recent fall concern. SCD's on. Patient status: Patient is admitted under observation status with expected length of stay less than 2 midnights due to severity of presenting symptoms, risk of adverse event, and complexity of treatment plan. Pain Evaluation: Adequate Pain Control GI Prophylaxis: Proton Pump Inhibitor VTE Mechanical Devices: Venous Foot Pump Resuscitation Status: DNR/DNI:Do Not Resuscitate/Intubate Time spent 25 minutes Vik Talbot DO Nov 28, 2016 15:18
[2016-11-29 00:01] VITALS: BP 166/88; PULSE 74; RESP 16; O2SAT 93
[2016-11-29 04:56] VITALS: BP 183/93; PULSE 66; RESP 16; O2SAT 93
[2016-11-29 06:14] VITALS: PULSE 63
[2016-11-29] MEDS: Pantoprazole 40 mg ER24 Tablet PO SCH (07:44)
[2016-11-29] MEDS: Sodium Chloride LOK Flush 10 mL Syringe IVFLUSH SCH (07:44)
[2016-11-29 08:00] VITALS: PULSE 85
[2016-11-29 09:37] VITALS: BP 167/72; PULSE 67; RESP 16; O2SAT 93
[2016-11-29] MEDS ORDERED: Acetaminophen PO (10:32)
[2016-11-29] MEDS ORDERED: CLC200SP2 (10:37)
--- NOTE | 2016-11-29 10:42 | PCM.DC.MED ---
Discharge Summary Date of Service Nov 29, 2016 Dates of Hospitalization Date of Hospital Admission Nov 27, 2016 at 00:58 Date of Discharge: Nov 29, 2016 Providers: Admitting Physician: Paty Farah DO Primary Care Physician: Divina Lindsey MD Attending Physician: Josephine Obregon MD Diagnosis at Time of Discharge Diagnosis at Time of Discharge Recurrent ground level falls multiple compression fractures of lumbar spine, history of osteoporosis Procedures XRay, CTs & MRIs Lower extremity ultrasound 11/26/2016 IMPRESSION: No evidence for deep venous thrombosis is found in the left lower extremity with this duplex venous Doppler study. Small Navas's cyst is noted, approximately 2 cm in greatest dimension. Dictated by: Johnnie Fox M.D. on 11/26/2016 at 22:45 Approved by: Johnnie Fox M.D. on 11/26/2016 at 22:46 Pelvis ultrasound 11/26/2016 IMPRESSION: No abnormality is identified in the AP pelvis and frog-leg view of the left hip. Dictated by: Johnnie Fox M.D. on 11/26/2016 at 21:55 Approved by: Johnnie Fox M.D. on 11/26/2016 at 21:57 Left left hip/femur ultrasound 11/26/2016 IMPRESSION: No acute bony abnormality is seen in the left femur. Dictated by: Johnnie Fox M.D. on 11/26/2016 at 21:54 Approved by: Johnnie Fox M.D. on 11/26/2016 at 21:[address] 11/25/2016 IMPRESSION: No acute intracranial abnormality. Moderate atrophy and microvascular ischemic change of aging. Dictated by: Johnnie Fox M.D. on 11/26/2016 at 21:38 Approved by: Johnnie Fox M.D. on 11/26/2016 at 21:[address] 11/25/2016 CT THORACIC SPINE: IMPRESSION: Compression fracture deformities most notably spanning from T8 and distally. Degree of osteopenia somewhat limits assessment for superimposed acute or subacute fracture. No discernible hyodense fracture line seen. Could consider MRI to assess for bone marrow edema for persistent clinical concern. Lumbar spine CT 11/17/2016 CT LUMBAR SPINE: IMPRESSION: Chronic-appearing osteoporotic compression fracture at multiple levels. Superimposed acute or subacute component not excluded given degree of osteopenia. Superimposed fracture involving the superior endplate of L5 suspected. Otherwise, no discernible hyodense fracture line noted. Could consider MRI to assess for bone marrow edema. Persistent clinical concern. ECG 12 Lead ECG Interpretation: atrial fibrillation, rate 111 no evidence of a STEMI left ventricular hypertrophy prolonged QT interval nonspecific inferior T wave abnormalities Time: 19:29 Interpreted by: ED physician Brief History Anupama Wiggins is a pleasant 89-year-old female with a history of hypertension, paroxysmal atrial fibrillation, and osteoporosis who presented to the ED via EMS after a ground-level fall. She reports a sharp pain in her left hip that caused her to list to that side, where she lost her balance and fell onto her back/side, hitting the back of her head on her stove. She did not lose consciousness. She reports sharp left leg pain that is intermittent with movement, and does not radiate. She says she still feels weak but denies any chest pain, palpitations, headache, vision or hearing changes, worsening back pain, nausea or vomiting. She is not on any blood thinning medication. On her way into the ED, EMS noted dysrhythmias on her EKG. Initial EKG in the ED significant for atrial fibrillation with a rate of 111. Of note, the patient was discharged from the hospital earlier this afternoon , where she was treated for generalized weakness and her left leg x-rays were negative. She was to have home health 3 times weekly for PT to help regain strength. Hospital Course Anupama Wiggins is a pleasant 89-year-old female with a history of hypertension, paroxysmal atrial fibrillation, and osteoporosis who presented to the ED via EMS after a ground-level fall that occurred due to a sharp pain in her left leg. Ground-level fall, present on admission. Acute. Ongoing. - Likely due to her weakness and left leg pain but she does have arrhythmia history - Patient has extensive history of osteoporosis with multiple compression fractures; denies any pain at this time - Multiple imaging studies negative for left leg/hip fractures - Consider MRI studies as radiology reports recommend for further evaluation, though given the improving hip pain and progressed with physical therapy this will be deferred at this time. - Reevaluation by physical therapy, recommend placement at [facility] facility - Social workers contacted [facility], bed likely available soon as tomorrow. Patient is amenable to this plan - Avoiding anticoagulation at this time due to acute trauma and recurrent falls -On day of discharge will initiate Miacalcin as patient does have osteoporosis and multiple depression fractures which will help with osteoporosis and acute fracture. Elevated troponin, present on admission. Acute. Ongoing. - Likely due to stress, demand of fall - Patient asymptomatic; no chest pain or palpitations, shortness of breath - EKG significant for atrial fibrillation and no ST changes - Trended troponins which remain stable and borderline low and hence no further evaluation is indicated Paroxysmal atrial fibrillation, present on admission. Chronic. - Continue metoprolol tartrate 50 mg twice daily - Continue aspirin 81 mg daily Hypertension, present on admission. Chronic. - Continue lisinopril 5 mg daily GERD, present on admission. Chronic. - Continue omeprazole 20 mg daily Disposition: Discharge to SNF today for continued physical therapy and strengthening. Hopeful discharge home once rehab have been completed. PRN Medications - Acetaminophen as needed for mild pain/fever/headache - Bowel regimen as needed - Antiemetic as needed - SubQ heparin held for now with recent fall concern. SCD's on. Exam Vital Signs (Last) Date Time Temp Pulse Resp B/P Pulse Ox O2 Delivery O2 Flow Rate FiO2 11/29/16 10:25 Supplement Oxygen 11/29/16 09:37 36.7 67 16 167/72 93 11/27/16 09:04 2.00 Exam Constitutional: Elderly female in no acute distress Head: Normocephalic atraumatic Chest: Clear to auscultation Cor: Regular rate and rhythm S1-S2 Abdomen: Soft nontender bowel sounds present Extremities: No pedal edema Skin: No rashes Psych: Mood and affect are appropriate Neuro: Alert and oriented 3, moves all extremities equally Test 11/26/16 20:19 11/26/16 20:22 11/26/16 23:55 11/27/16 05:05 D-Dimer 12.91mg/L FEU (<0.50) Hold Maria Top Tube Received (Received) Urine Color Yellow (YELLOW) Urine Appearance Clear (CLEAR,HAZY) Urine pH 5.5 (5.0-8.0) Urine Specific [place] <1.005 (1.003-1.035) Urine Protein Negativemg/dL (NEG,TRACE) Urine Glucose (UA) Negativemg/dL (NEGATIVE) Urine Ketones Negativemg/dL (NEGATIVE) Urine Occult Blood Trace (NEGATIVE) Urine Nitrite Negative (NEGATIVE) Urine Bilirubin Negative (NEGATIVE) Urine Urobilinogen Normalmg/dL (NORMAL) Urine Leukocyte Esterase Trace (NEGATIVE) Urine RBC 0-2/hpf (0-2) Urine WBC 0-5/hpf (0-5) Urine Epithelial Cells Occasional/hpf (NONE-MOD) Urine Crystals None seen (NONE SEEN) Urine Bacteria None/hpf (NONE-FEW) Urine Hyaline Casts None/lpf (NONE) Urine Granular Casts None seen (NONE SEEN) Urine Waxy Casts None seen (NONE SEEN) Urine Red Blood Cell Casts None seen (NONE SEEN) Urine White Blood Cell Casts None seen (NONE SEEN) Urine Mucus None seen (None Seen) Urine Trichomonas None seen (NONE SEEN) Urine Yeast None (NONE SEEN) Urinalysis Comment None Urine Culture Reflexed Indicated Hold Urine Received (Received) White Blood Count 5.7th/mm3 (3.8-10.1) Red Blood Count 4.54mil/mm3 (3.90-5.20) Hemoglobin 13.8g/dL (12.0-15.6) Hematocrit 39.6% (35.0-46.0) Mean Corpuscular Volume 87.2fL (81-100) Mean Corpuscular Hemoglobin 30.4pg (27.0-35.0) Mean Corpuscular Hemoglobin Concent 34.8% (32.0-37.0) Red Cell Distribution Width 12.9% (12.3-15.4) Platelet Count 142bil/L (150-400) Neutrophils (%) (Auto) 64.1% (40-74) Lymphocytes (%) (Auto) 19.2% (14-46) Monocytes (%) (Auto) 13.6% (4-12) Eosinophils (%) (Auto) 2.4% (0-5) Basophils (%) (Auto) 0.5% (0-3) Sodium Level 135mEq/L (134-144) Potassium Level 3.5mEq/L (3.5-5.2) Chloride Level 96mEq/L (97-108) Carbon Dioxide Level 23mmol/L (18-29) Blood Urea Nitrogen 7mg/dL (8-27) Creatinine 0.37mg/dL (0.57-1.00) Estimat Glomerular Filtration Rate 236mL/min (>59) Glucose Level 113mg/dL (60-99) Calcium Level 8.3mg/dL (8.5-10.1) Total Bilirubin 0.6mg/dL (0.0-1.2) Aspartate Amino Transf (AST/SGOT) 20U/L (0-50) Alanine Aminotransferase (ALT/SGPT) 16U/L (0-32) Alkaline Phosphatase 62U/L (25-165) Total Protein 5.7g/dL (6.4-8.4) Albumin 3.5g/dL (3.4-5.0) Test 11/27/16 08:45 Troponin T 0.014ug/L (0.0-0.011) Microbiology Results UA, pending Discharge Medications Discharge Medications Aspirin (Aspirin) 81 Mg Tablet 81 MG PO DAILY Prescribed by: LAURIE VALERA DO Calcitonin [place] (Miacalcin) 30 Eagar/3.7 Ml Nasalspr 1 SPRAY NA DAILY Eagar in 1 Nostril (Alternating Nostrils) Daily Prescribed by: JOSEPHINE OBREGON MD Lisinopril (Lisinopril) 5 Mg Tablet 5 MG PO DAILY Prescribed by: LAURIE VALERA DO Metoprolol Tartrate (Metoprolol Tartrate) 25 Mg Tablet 50 MG PO BID Prescribed by: LAURIE VALERA DO Omeprazole (Omeprazole) 20 Mg Capsule.dr 20 MG PO DAILY (Reported) As needed ([Acetaminophen]) 325 MG TABLET 975 MG PO Q6H PRN PRN For Pain Prescribed by: JOSEPHINE OBREGON MD Followup Plan Disposition: long term facility, [facility] Discharge Diet: Heart Healthy Time spent 45 minutes copies to: Divina Lindsey MD, Cheryl A MD Nov 29, 2016 10:42
== END 2016-11-29 13:00 | disposition home or self-care (01) ==
LOC: EDBD 19:00 → SED 19:00 → INTOOBSV 11-27 00:58 → MPC 11-27 00:58
PROVIDERS: ADMIT Internal Medicine; ATTEND Specialist
DX: R53.1 Weakness (principal); I10 Essential (primary) hypertension; I48.0 Paroxysmal atrial fibrillation; M81.8 Other osteoporosis without current pathological fracture; M54.30 Sciatica, unspecified side; M41.9 Scoliosis, unspecified; M84.48XS Pathological fracture, other site, sequela; K21.9 Gastro-esophageal reflux disease without esophagitis; Z79.82 Long term (current) use of aspirin; Z79.899 Other long term (current) drug therapy; Z87.891 Personal history of nicotine dependence